=== PATIENT | male | born 1970 | race Caucasian/White ===

== ENCOUNTER 2020-02-01 20:00 | Outpatient (CLI) | payer OTHER, SELFPAY | END 2020-02-01 20:01 | disposition home or self-care (01) | LOC: SLEEP 02-02 08:13 | PROVIDERS: Visit Provider Emergency Medicine Emergency Medical Services | DX: G47.33 Obstructive sleep apnea (adult) (pediatric) (principal) | CPT/HCPCS: 95810 ==

== ENCOUNTER 2020-03-12 20:00 | Outpatient (CLI) | payer OTHER, SELFPAY | END 2020-03-12 20:01 | disposition home or self-care (01) | LOC: SLEEP 03-13 11:04 | PROVIDERS: Visit Provider Emergency Medicine Emergency Medical Services | DX: G47.33 Obstructive sleep apnea (adult) (pediatric) (principal) | CPT/HCPCS: 95811 ==

== ENCOUNTER → 2023-03-18 15:00 | Outpatient (BNVA) | payer OTHER, SELFPAY | PROVIDERS: Visit Provider Nurse Practitioner Family | DX: D22.5 Melanocytic nevi of trunk; L81.4 Other melanin hyperpigmentation; L82.1 Other seborrheic keratosis; L91.8 Other hypertrophic disorders of the skin; W89.1XXA Exposure to tanning bed, initial encounter; B35.3 Tinea pedis; Z12.83 Encounter for screening for malignant neoplasm of skin | CPT/HCPCS: 17110; 99214 ==

== ENCOUNTER → 2023-12-14 13:20 | Outpatient (BNVA) | payer OTHER, SELFPAY | PROVIDERS: Visit Provider Nurse Practitioner Family | DX: D48.5 Neoplasm of uncertain behavior of skin (principal); B35.3 Tinea pedis; B35.1 Tinea unguium; L82.1 Other seborrheic keratosis; D22.5 Melanocytic nevi of trunk; L81.4 Other melanin hyperpigmentation; W89.1XXA Exposure to tanning bed, initial encounter; X58.XXXA Exposure to other specified factors, initial encounter | CPT/HCPCS: 11102; 99214 ==

== ENCOUNTER 2024-09-26 20:00 | Outpatient (CLI) | payer OTHER, SELFPAY | END 2024-09-26 20:01 | disposition home or self-care (01) | LOC: SLEEP 09-27 03:00 | PROVIDERS: Visit Provider Family Medicine | DX: G47.33 Obstructive sleep apnea (adult) (pediatric) (principal) | CPT/HCPCS: 95810 ==

== ENCOUNTER → 2024-12-13 13:46 | Outpatient (BNVA) | payer OTHER, SELFPAY | PROVIDERS: Visit Provider Nurse Practitioner Family | DX: L82.1 Other seborrheic keratosis (principal); D23.71 Other benign neoplasm of skin of right lower limb, including hip; D18.01 Hemangioma of skin and subcutaneous tissue; L81.4 Other melanin hyperpigmentation; W89.1XXA Exposure to tanning bed, initial encounter; D48.5 Neoplasm of uncertain behavior of skin | CPT/HCPCS: 11102; 99213 ==